=== PATIENT | female | born 1980 | race African-American/Black ===

== ENCOUNTER → 2017-07-01 | Outpatient (CLI) | payer BC, OTHER ==
[~2017-07-01] MED LIST: DIABETA 5MG TABL5 MG PO; LISINOPRIL20 MG PO; METFORMIN HCL500 MG PO; PHENTERMINE H37.5 MG PO; PROAIR HFA8.5 GM INH; TRAMADOL 50 MG50 MG PO
== END ==
LOC: RAD 12:21
DX: M25.562 Pain in left knee (principal)